=== PATIENT | female | born 1970 | race Hispanic/Latino ===

== ENCOUNTER 2017-12-19 07:25 | Outpatient (CLI) | payer OTHER ==
--- NOTE | 2017-12-19 09:30 | ULT ---
RIGHT UPPER QUADRANT ULTRASOUND: Date: 12/19/17 HISTORY: Right upper quadrant pain. FINDINGS: The liver demonstrates homogeneous echotexture without focal mass or intrahepatic ductal dilatation. No gallstones, gallbladder wall thickening, or pericholecystic fluid is seen. A prominent fold is not ed in the gallbladder. Common duct measures 3.0 mm in diameter. The right kidney and visualized porti ons of the pancreas are unremarkable. No free fluid is seen in Morison's pouch. IMPRESSION: No evidence of cholelithiasis. POS: GERRIH
== END 2017-12-19 07:26 | disposition home or self-care (01) ==
LOC: SCSULT 07:25
PROVIDERS: ATTEND Family Medicine
DX: R10.11 Right upper quadrant pain (principal)
CPT/HCPCS: 76705

== ENCOUNTER 2018-01-16 08:01 | Day surgery (SDC) | payer OTHER ==
[2018-01-15 12:58] VITALS: BMI 24.5
[2018-01-16] MEDS ORDERED: Glycopyrrolate 0.2 MG/ML 5 ML SYRINGE ONE (10:22)
[2018-01-16] MEDS ORDERED: PHENYLEPHRINE-NS 100 MCG/ML 10 ML SYRINGE ONE (10:23)
[2018-01-16] MEDS ORDERED: Sodium Chloride 0.9% 100 ML ONE (11:02)
[2018-01-16] MEDS ORDERED: cefOXitin 2 GM VIAL ONE (11:02)
--- NOTE | 2018-01-16 11:23 | OP ---
DATE OF PROCEDURE: 01/16/2018 SURGEON: Maddie Regalado M.D. OPERATIVE PROCEDURE: Esophagogastroduodenoscopy with biopsy. PREOPERATIVE DIAGNOSIS: A 47-year-old female with a history of chronic indigestion, h eartburn. The patient undergoing esophagogastroduodenoscopy. POSTOPERATIVE DIAGNOSES: 1. Normal looking vocal cords. 2. Normal esophageal mucosa throughout without any esophagitis. 3. Gastric polyp with central ____ over the gastric antrum. 4. Normal duodenum. PROCEDURE NOTE: The patient was placed on her left lateral position and was given sedation by Anesth esia Department. A Pentax video gastroscope under direct vision was passed down the oropharynx, past the GE junction, into the stomach and subsequently into the descending duodenum. The vocal cords ap peared healthy. Although the patient complains of chronic acid reflux, at endoscopy the mucosa appea red completely normal. No esophagitis or any erosions seen. The GE junction, no pathology seen. Re troflexion failed to show pathology in the fundus and cardia. The gastric body, no pathology seen. Over the gastric antrum, the patient found to have a polyp measuring approximately 1.5 cm. The polyp appears smooth and also there is central ____. This was biopsied. The pyloric channel, duodenal bu lb, descending duodenum, no pathology. The stomach was decompressed and the scope removed. DISCHARGE PLANNING: This is a 47-year-old female undergoing esophagogastroduodenoscop y because of chronic acid reflux and chronic dyspepsia. The EGD showed no pathology except for a gas tric polyp. DISCHARGE RECOMMENDATIONS: 1. Continue medicines as before. 2. She is advised to call me if she develops any hematemesis or melena. 3. To come back to clinic in 2 weeks.
[2018-01-16] MEDS ORDERED: PROPOFOL 200 MG/20 ML VIAL ONE (12:32)
== END 2018-01-16 11:55 | disposition home or self-care (01) ==
LOC: SDC 08:01
PROVIDERS: ATTEND Internal Medicine Gastroenterology
PROC: 0DB68ZX Excision of Stomach, Via Natural or Artificial Opening Endoscopic, Diagnostic (ICD-10-PCS; principal; 2018-01-16)
DX: K29.50 Unspecified chronic gastritis without bleeding (principal); K21.9 Gastro-esophageal reflux disease without esophagitis; Z88.5 Allergy status to narcotic agent; Z79.899 Other long term (current) drug therapy
CPT/HCPCS: 88305; 88312; J0694; J7050

== ENCOUNTER 2018-05-22 11:46 | Outpatient (CLI) | payer OTHER | END 2018-05-22 11:47 | disposition home or self-care (01) | LOC: BICMAMMO 11:46 | PROVIDERS: ATTEND Family Medicine | DX: Z12.31 Encounter for screening mammogram for malignant neoplasm of breast (principal) | CPT/HCPCS: 77063; 77067 ==

== ENCOUNTER 2019-03-12 07:22 | Outpatient (CLI) | payer OTHER ==
--- NOTE | 2019-03-12 08:23 | ULT ---
EXAM: US Abdominal CLINICAL HISTORY: Periumbilical pain. COMPARISON: None. FINDINGS: Pancreas: Visualized pancreatic parenchyma has a normal echotexture IVC: Visualized inferior vena cava has a normal caliber Aorta: Visualized aorta has a normal caliber Liver:Hepatic parenchyma has a normal echotexture. No hepatic masses or intrahepatic biliary dilatati on. The contour of the hepatic margin is maintained. Right hepatic lobe measures 14.8 cm Gallbladder: No sonographic evidence of cholelithiasis, gallbladder wall thickening or pericholecysti c fluid Lutz's sign:Negative CBD: 0.4 cm common bile duct diameter Right kidney: No hydronephrosis. Right kidney measuring 10.4 x 4.3 x 4.9 cm in length. Left kidney: No hydronephrosis. Left kidney measuring 10.1 x 5.3 x 4.8 cm in length Spleen: Normal echotexture, measuring 10 cm in maximum dimension IMPRESSION: Unremarkable exam.
--- NOTE | 2019-03-12 10:07 | ULT ---
ULTRASOUND PELVIS DOPPLER DUPLEX: DATE: 03/12/2019. TIME: 8:14 a.m. HISTORY: A 49-year-old female with pelvic pain. TECHNIQUE: Transabdominal transducer was used to evaluate intrapelvic contents with palacios scale, color flow, and spectral analysis. FINDINGS: Uterus: Surgically absent. Right ovary: 3 x 2.5 x 4 cm. Left ovary: 3 x 1.5 x 2 cm. A 2 x 1.5 x 1 cm right ovarian cyst. Flow demonstrated in both ovaries by Doppler. No free fluid identified. Unremarkable urinary bladder as imaged. IMPRESSION: 1. Status post hysterectomy. 2. A 2 cm right ovarian cyst. POS: TPC
== END 2019-03-12 07:23 | disposition home or self-care (01) ==
LOC: SCSULT 07:22
PROVIDERS: ATTEND Family Medicine
DX: R10.33 Periumbilical pain (principal); N83.201 Unspecified ovarian cyst, right side; Z90.710 Acquired absence of both cervix and uterus
CPT/HCPCS: 76700; 76856; 93976

== ENCOUNTER 2019-05-24 07:49 | Outpatient (CLI) | payer OTHER ==
--- NOTE | 2019-05-24 10:36 | MMO ---
Bilateral MAMMO Bilat Screen [facility]. CLINICAL HISTORY: Patient is 49 years old and is seen for screening. The patient has no family history of breast cancer. The patient has no personal history of cancer. VIEWS: The views performed were: bilateral craniocaudal with tomosynthesis and bilateral mediolateral oblique with tomosynthesis. FILMS COMPARED: The present examination has been compared to prior imaging studies performed at [facility] on 05/15/2015, 05/17/2016, 05/19/2017 and 05/22/2018. This study has been interpreted with the assistance of computer-aided detection. MAMMOGRAM FINDINGS: The breasts are heterogeneously dense, which could obscure a lesion on mammography. There are no suspicious masses, suspicious calcifications, or new areas of architectural distortion. IMPRESSION: THERE IS NO MAMMOGRAPHIC EVIDENCE OF MALIGNANCY. A ROUTINE FOLLOW-UP MAMMOGRAM IN 1 YEAR IS RECOMMENDED. THE RESULTS OF THIS EXAM WERE SENT TO THE PATIENT. ACR BI-RADS Category 1 - Negative MAMMOGRAPHY NOTE: 1. A negative mammogram report should not delay a biopsy if a dominant of clinically suspicious mass is present. 2. Approximately 10% to 15% of breast cancers are not detected by mammography. 3. Adenosis and dense breasts may obscure an underlying neoplasm. Reported by: NOEMI MANUEL MD Electonically Signed: [id number]
== END 2019-05-24 07:50 | disposition home or self-care (01) ==
LOC: BICMAMMO 07:49
PROVIDERS: ATTEND Family Medicine
DX: Z12.31 Encounter for screening mammogram for malignant neoplasm of breast (principal)
CPT/HCPCS: 77063; 77067

== ENCOUNTER 2020-05-26 08:12 | Outpatient (CLI) | payer OTHER ==
--- NOTE | 2020-05-26 09:36 | MMO ---
Bilateral MAMMO Bilat Screen [facility]. CLINICAL HISTORY: Patient is 50 years old and is seen for screening. The patient has no family history of breast cancer. The patient has no personal history of cancer. VIEWS: The views performed were: bilateral craniocaudal with tomosynthesis and bilateral mediolateral oblique with tomosynthesis. FILMS COMPARED: The present examination has been compared to prior imaging studies performed at [facility] on 05/17/2016, 05/19/2017, 05/22/2018 and 05/24/2019. This study has been interpreted with the assistance of computer-aided detection. MAMMOGRAM FINDINGS: The breasts are heterogeneously dense, which could obscure a lesion on mammography. There are no suspicious masses, suspicious calcifications, or new areas of architectural distortion. IMPRESSION: THERE IS NO MAMMOGRAPHIC EVIDENCE OF MALIGNANCY. A ROUTINE FOLLOW-UP MAMMOGRAM IN 1 YEAR IS RECOMMENDED. THE RESULTS OF THIS EXAM WERE SENT TO THE PATIENT. ACR BI-RADS Category 1 - Negative MAMMOGRAPHY NOTE: 1. A negative mammogram report should not delay a biopsy if a dominant of clinically suspicious mass is present. 2. Approximately 10% to 15% of breast cancers are not detected by mammography. 3. Adenosis and dense breasts may obscure an underlying neoplasm. Reported by: NOEMI MANUEL MD Electonically Signed: [id number]
== END 2020-05-26 08:13 | disposition home or self-care (01) ==
LOC: BICMAMMO 08:12
PROVIDERS: ATTEND Family Medicine
DX: Z12.31 Encounter for screening mammogram for malignant neoplasm of breast (principal)
CPT/HCPCS: 77063; 77067

== ENCOUNTER 2020-07-15 06:25 | Outpatient (CLI) | payer OTHER ==
[2020-07-15 18:33] LABS: SARS-CoV-2 MS2 Positive; SARS-CoV-2 N Gene Negative; SARS-CoV-2 S Gene Negative; SARS-CoV-2 by NAA Not Detected (NotDetected); SARS-CoV-2 orf1ab Negative
== END 2020-07-15 06:26 | disposition home or self-care (01) ==
LOC: LABBT 06:25
PROVIDERS: ATTEND Surgery Surgery of the Hand
DX: Z01.812 Encounter for preprocedural laboratory examination (principal); Z12.11 Encounter for screening for malignant neoplasm of colon; Z20.828 Contact with and (suspected) exposure to other viral communicable diseases
CPT/HCPCS: 87635; U0003

== ENCOUNTER 2020-07-21 10:45 | Day surgery (SDC) | payer OTHER ==
[2020-07-14 15:06] VITALS: BMI 22.4
[~2020-07-21 10:45] MED LIST: Dexamethasone 20 MG/5 ML VIAL ONE; Lidocaine 1% PF 5 ML VIAL ONE; Ondansetron PF 4 MG/2 ML Vial ONE; PROPOFOL 200 MG/20 ML VIAL ONE; ePHEDrine 50 MG/ML VIAL ONE
[2020-07-21] MEDS ORDERED: Bupivacaine 0.25% HCL 30 ML VIAL ONE (11:44)
[2020-07-21] MEDS ORDERED: Lidocaine 1% w/Epinephrine 1:100K 20 ML VIAL ONE (11:44)
[2020-07-21] MEDS ORDERED: Midazolam HCl 2 mg/2 ml Vial ONE (12:06)
[2020-07-21] MEDS ORDERED: Fentanyl 100 MCG/2 ML VIAL ONE (12:06)
--- NOTE | 2020-07-21 13:52 | OP ---
DATE OF PROCEDURE: 07/21/2020 PREOPERATIVE DIAGNOSIS: Dorsal right wrist ganglion cyst. POSTOPERATIVE DIAGNOSIS: Dorsal right wrist ganglion cyst. PROCEDURE: Excision of dorsal right wrist ganglion cyst. ANESTHESIA: General and local. ESTIMATED BLOOD LOSS: Less than 5 mL. TOURNIQUET TIME: 17 minutes. FINDINGS: Ganglion cyst appreciated with the stalk coming from the scapholunate interval, right wrist, and there appeared to be some surrounding tenosynovium that was thickened over the extensor tendons. SPECIMENS: Ganglion cyst, right wrist, sent to pathologist. CONDITION: Stable. INDICATIONS: The patient is a 50-year-old female who has a ganglion cyst over the dorsum of the right wrist. She is accompanied by her daughter today for surgery. I discussed all risks and goals associated with the surgery. I did not offer any guarantees. I informed the patient and her daughter that there is a 10% chance of recurrence for the cyst even after surgical excision is performed. They voiced understanding and agreed to proceed. The patient was okay taking [id number] ibuprofen with alternating doses of [id number] Tylenol for postoperative pain control as she has an allergy to tramadol. DESCRIPTION OF PROCEDURE: The patient was given preoperative antibiotics. She was brought to the operating room and placed supinely on the operating room table. Right upper extremity tourniquet was applied. General anesthesia was induced by the anesthesia team. The skin overlying the dorsum of the right wrist in the area of the ganglion cyst was injected with 1% lidocaine with epinephrine, used as tumescent local anesthetic. The right upper extremity was then prepped and draped under sterile aseptic conditions. A second time-out was performed. Right upper extremity was exsanguinated using an Esmarch wrap and the tourniquet was inflated to 250 mmHg. A longitudinal incision was made in the skin overlying the ganglion cyst over the dorsum of the right wrist. Skin flap was gently and bluntly elevated using tenotomy scissors. Care was taken to avoid injury to the sensory nerve branches and extensor tendons in the area. The ganglion cyst was identified. It was fairly large; it was dissected down to its stalk, which appeared to be coming from the scapholunate interval. It was completely excised along with some thickening of the tenosynovium overlying the extensor tendons. Ganglion cyst was sent for pathologic specimen. The wound was irrigated. The skin incision was primarily repaired using 4-0 nylon suture. Tourniquet was deflated during the skin closure. All fingers resumed a normal pink color with good refill. Xeroform was applied over the wound along with bulky dressing. The patient's wrist and hand were protected in a plaster volar wrist splint, which was secured using a soft roll and an Fito wrap. Additional local anesthetic was given as a 0.25% plain bupivacaine around the incision prior to application of the dressings to help with postoperative pain. She was extubated, transported back to recovery area in a stable condition. I will see her back in the clinic in one week for suture removal and wound check and removal of the splint. She should remain nonweightbearing and avoid pushing or pulling activities regarding use of the right hand and wrist until further notice. Job ID: [id number]
--- NOTE | 2020-07-21 17:36 | EKG ---
Test Reason : PREOP Blood Pressure : / mmHG Vent. Rate : 048 BPM Atrial Rate : 048 BPM P-R Int : 138 ms QRS Dur : 084 ms QT Int : 482 ms P-R-T Axes : 047 090 050 degrees QTc Int : 430 ms Marked sinus bradycardia Rightward axis Abnormal ECG Confirmed by Ines MCGILL ([id number]) on 07/21/2020 5:35:57 PM Referred By: ANDREE Confirmed By:Ines MCGILL
== END 2020-07-21 14:20 | disposition home or self-care (01) ==
LOC: SDC 10:45
PROVIDERS: ATTEND Surgery Surgery of the Hand
PROC: 0LB50ZZ Excision of Right Lower Arm and Wrist Tendon, Open Approach (ICD-10-PCS; principal; 2020-07-21)
DX: M67.431 Ganglion, right wrist (principal); Z79.899 Other long term (current) drug therapy; Z88.5 Allergy status to narcotic agent
CPT/HCPCS: 88304; 93005; 93010; J0690; J1100; J2250; J2405; J2704; J3010; J3490; S0020

== ENCOUNTER 2022-07-05 08:07 | Outpatient (CLI) | payer OTHER | END 2022-07-05 08:08 | disposition home or self-care (01) | LOC: BICMAMMO 08:07 | PROVIDERS: ATTEND Family Medicine | DX: Z12.31 Encounter for screening mammogram for malignant neoplasm of breast (principal) | CPT/HCPCS: 77063; 77067 ==

== ENCOUNTER 2023-07-14 12:26 | Outpatient (CLI) | payer OTHER | END 2023-07-14 12:27 | disposition home or self-care (01) | LOC: BICMAMMO 12:26 | PROVIDERS: ATTEND Family Medicine | DX: Z12.31 Encounter for screening mammogram for malignant neoplasm of breast (principal) | CPT/HCPCS: 77063; 77067 ==

== ENCOUNTER 2024-08-14 09:33 | Outpatient (CLI) | payer OTHER | END 2024-08-14 09:34 | disposition home or self-care (01) | LOC: BICMAMMO 09:33 | PROVIDERS: ATTEND Family Medicine | DX: Z12.31 Encounter for screening mammogram for malignant neoplasm of breast (principal); N64.89 Other specified disorders of breast; Z80.3 Family history of malignant neoplasm of breast | CPT/HCPCS: 77063; 77067 ==

== ENCOUNTER 2024-08-21 14:28 | Outpatient (CLI) | payer OTHER | END 2024-08-21 14:29 | disposition home or self-care (01) | LOC: BICMAMMO 14:28 | PROVIDERS: ATTEND Family Medicine | DX: N64.89 Other specified disorders of breast (principal) | CPT/HCPCS: G0279 ==